=== PATIENT | female | born 1945 | race Caucasian/White ===

== ENCOUNTER 2020-08-09 10:08 | Outpatient (CLI) | payer MEDICARE, OTHER, SELFPAY ==
[2020-08-09 12:24] LABS: Calcium 10.2 mg/dL (8.5-10.5)
--- NOTE | 2020-08-09 18:29 | ONC CON_ITS ---
Dr. Chou New Patient Note Patient: Esha Colindres Unit #: [id number]: 1945 Dicatated By: Isaac Chou M.D.Date of Visit: Aug 09, 2020 Onc MED New Patient/Consult Referring Physician: Aura Gómez Chief Complaint: Hereditary hemorrhagic telangiectasia/osteoporosis. History of Present Illness: This is a 75 year-old woman with hereditary hemorrhagic telangiectasia. She also has osteoporosis, and she has been recommended to have an infusion of Reclast. She has known HHT. She has had recurrent epistaxis associated with it, but she has not had other bleeding manifestations. She also reports having had a stroke 23 years ago, and at that time she also was found to have deep vein thrombosis and pulmonary embolism, for which she has remained chronically anticoagulated with warfarin. She has additional history of osteoporosis with multiple vertebral compression fractures. The most recent fracture occurred 5 or 6 years ago. She has had prior Reclast infusions in 2014, 2016, and in April 2018. She had a follow-up visit at [facility] on 06/15/2020. Her bone mineral density at that time was noted to have decreased -2.2% in the lumbar spine and -2.7% in the femoral neck. These were considered to be significant, and she was recommended to have another infusion of Reclast administered locally. She is being seen here today for the Reclast infusion. She has been feeling pretty good generally. She says her energy is good, but she does have limited activity. ECOG score is 1. Her appetite has been okay. She does not have fever, night sweats, or hot flashes. She does have epistaxis associated with the HHT. She sometimes has cough associated with the more severe nosebleed. She does not complain of shortness of breath or chest pain. She has no GI or complaints, but she does report having a hernia in her right groin area, which she says needs to be fixed. She has some low back pain at times. She does not complain of headache or dizziness. She sometimes has tingling in her right hand. She has no other focal neurologic symptoms. Past Medical History: Her medical history includes hereditary hemorrhagic telangiectasia, history of deep vein thrombosis and pulmonary emboli, history of stroke, and osteoporosis. Past Surgical History: Her surgical/procedural history includes coil placement for pulmonary AVM and a vertebroplasty procedure. Medications: Calcium 2 Tablet (of 600 mg) Oral daily, Coumadin 1 (5 mg) Tablet Oral daily Allergies: Benzonatate and Red Meat. Social History: Ms. 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 She is a non-smoker. She does not drink alcohol. Family History: Father with lung cancer at age 83. Mother at age 80 with complications of HHT. Six of the patient's 10 siblings also had HHT. One brother also from complications with HHT. Another brother at age 54 with renal failure, having undergone renal transplant at age 33. One sister of breast cancer and another of stroke. Review Of Symptoms: Constitutional - She has pretty good energy, but her activity is limited. Her appetite has been okay. Her weight is stable. No fever, night sweats, or hot flashes. ECOG score is 1, Eyes - No change in vision, ENMT - No hearing loss or tinnitus. No sinus congestion/drainage. She has frequent epistaxis. No mouth sores. No sore throat or difficulty swallowing, Hematologic/Lymphatic - No abnormal bruising, but she has frequent epistaxis associated with HHT, Respiratory - No shortness of breath. She sometimes has cough with more severe nosbleeds. No pleuritic pain or hemoptysis, Cardiovascular - No angina pain. No palpitations, Gastrointestinal - No nausea or vomiting. No heartburn or acid reflux. No diarrhea or constipation. No blood in the stool or black stools, Genitourinary (F) - No dysuria or hematuria. No urinary frequency. No urgency or incontinence. She indicates that she has a hernia in the right groin area, Musculoskeletal - She has some low back pain, Integumentary - No skin rash or other skin changes, Neurologic - No headache or dizziness. She sometimes has tingling in her right hand. No other focal neurologic symptoms, Psychiatric - She has some anxiety. No depression. She has some difficulty sleeping. Vital Signs: Performed on Aug 09, 2020 10:48: 0, 25.12, 1.67 sq.m, 63 in, 98 %, 62 /min, 16 /min, 98.2 F (LOW), and 141.8 lbs (HIGH). Physical Examination: Constitutional - She appears to be in good general health, Eyes - Sclerae nonicteric. Conjunctivae clear, ENMT - There are a few telangectasia on the tongue. There are no other lesions noted in the oral cavity, Neck - No mass or thyromegaly, Hematologic/Lymphatic - No cervical, clavicular, or axillary adenopathy, Respiratory - Lungs are clear with good air movement bilaterally, Cardiovascular - Heart rhythm is regular. There is no murmur, gallop, or rub noted, Abdomen - Soft. Liver and spleen are not enlarged. There is no abdominal mass or ascites noted and there is no inguinal adenopathy, Back/Spine - There is a bony deformity in the lumbar spine area, Extremities - No edema. Dorsalis pedis pulses are palpable bilaterally, Integumentary - No suspicious skin lesions noted, Neurologic - No focal neurologic deficits noted. Lab/Imaging: Test performed on Aug 09, 2020 11:56 Calcium 10.2 mg/dL Creatinine 0.6 mg/dL Cr Clearance (Est) 82.26 mL/min Historic Problem List: 1. Hereditary hemorrhagic telangiectasia with recurrent epistaxis. 2. History of deep vein thrombosis and pulmonary embolism, on chronic anticoagulation with warfarin. 3. History of prior stroke. 4. Osteoporosis with multiple vertebral compression fractures. Problems Addressed with this Encounter and Plan: Osteoporosis with multiple vertebral compression fractures. Her bone mineral density study from May 2020 showed a -2.2% decrease in the lumbar spine and -2.7% decrease in the femoral neck compared to the March 2019 study. These were felt to be clinically significant. She has been recommended to have an infusion of Reclast. This will be administered today at a standard dosage of 5 mg by IV infusion. She will return here as needed. Signed By: Isaac Chou M.D. <<Signature on File>>
== END 2020-08-09 10:09 | disposition home or self-care (01) ==
PROVIDERS: PCP Internal Medicine; Visit Provider Internal Medicine Medical Oncology
DX: M80.08XA Age-related osteoporosis with current pathological fracture, vertebra(e), initial encounter for fracture (principal); I78.0 Hereditary hemorrhagic telangiectasia; Z86.73 Personal history of transient ischemic attack (TIA), and cerebral infarction without residual deficits; Z86.718 Personal history of other venous thrombosis and embolism; Z79.01 Long term (current) use of anticoagulants
CPT/HCPCS: 36415; 82310; 82565; 96365; 99204; J3489

== ENCOUNTER 2023-10-29 13:36 | Emergency (ER) | payer MEDICARE, OTHER, SELFPAY ==
[2023-10-29 13:44] VITALS: PULSE 70; RESP 16; TEMP 36.7; O2SAT 91
--- NOTE | 2023-10-29 13:47 | W.ED.GENADLT ---
HPI - General Adult General: Chief complaint: General Medical Stated complaint: lip bleeding Time Seen by Provider: 10/29/23 13:41 Source: patient Mode of arrival: ambulatory Limitations: no limitations History of Present Illness: 78-year-old female has a history of hereditary hemorrhagic telangiectasia mainly in the roof of her mouth has had bleeding from it in the past she is also on Coumadin she states she had some bleeding today and had last longer than typical. Bleeding has stopped at this time states she did have to have a transfusion last week. She denies any worsening improving factors or Associated symptoms: Deny chest pain, dyspnea, headache(s), nausea, rash or vomiting Review of Systems Const: Denies: fever(s), chills, body aches or change in appetite ENMT: Reports: oral sores; Denies: throat pain or dental pain Card: Denies: chest pain Resp: Denies: dyspnea GI: Denies: abdominal pain, nausea, vomiting or diarrhea Musc: Denies: neck pain or back pain Skin/Breast: Denies: rash Neuro: Denies: headache(s) Physical Exam Const: COMMON NORMALS: no acute distress, patient oriented x3 and healthy appearing HENMT: COMMON NORMALS: normocephalic and atraumatic HEAD & SCALP: normocephalic and atraumatic OTHER: Telangiectasia noted to roof of the mouth no active bleeding this time Eye: COMMON NORMALS: Equal, round and reactive pupils present and EOMs intact bilaterally PUPIL: Yes Equal, round and reactive pupils present Neck/C-Spine: COMMON NORMALS: full ROM and supple Chest: COMMONS NORMALS: normal inspection of the chest Resp: COMMON NORMALS: normal respiratory effort Cardio: COMMON NORMALS: regular rate, regular rhythm and No murmurs present (Cardio) RATE: regular rate RHYTHM: regular rhythm Extremity: COMMON NORMALS: normal to inspection and full ROM Neuro: COMMON NORMALS: patient oriented x3, moves all extremities and no focal motor deficits Psych: COMMON NORMALS: mental status grossly normal, Normal thought process present and cooperative THOUGHT PROCESS: Normal thought process present Skin: COMMON NORMALS: no rashes or lesions noted and no wounds GENERAL SKIN EXAM: no rashes or lesions noted Course Vital Signs: Vital signs: Vital Signs Temperature 98.1 F 10/29/23 13:44 Pulse Rate 69 10/29/23 15:00 Respiratory Rate 16 10/29/23 15:00 Blood Pressure 146/86 10/29/23 15:00 Pulse Oximetry 94 10/29/23 15:00 Oxygen Delivery Me thod Room Air 10/29/23 14:35 MDM - General Adult Medical Decision Making Patient presents here with bleeding to the roof of her mouth that is since resolved she stable for discharge follow-up with PCP return if worsening. Medical Records I reviewed the patient's medical records. Lab Data I reviewed the patient's lab results. 10/29/23 13:54 10/29/23 14:24 Laboratory Results WBC 9.45 10^3/uL (3.29-11.43) 10/29/23 13:54 RBC 4.28 10^6/uL (3.85-5.65) 10/29/23 13:54 Hgb 12.70 g/dL (11.27-16.99) 10/29/23 13:54 Hct 41.4 % (36-47) 10/29/23 13:54 MCV 96.7 fl (85-98) 10/29/23 13:54 MCH 29.7 pg (27-33) 10/29/23 13:54 MCHC 30.7 g/dL (30-55) 10/29/23 13:54 RDW 20.1 % (12.1-15.1) H 10/29/23 13:54 Plt Count 471 10^3/cmm (157-399) H 10/29/23 13:54 MPV 10.5 fL (7.4-10.4) H 10/29/23 13:54 Neut % (Auto) 75.9 % 10/29/23 13:54 Lymph % (Auto) 12.0 % 10/29/23 13:54 [place] % (Auto) 7.0 % 10/29/23 13:54 Eos % (Auto) 3.7 % 10/29/23 13:54 Baso % (Auto) 1.1 % 10/29/23 13:54 Neut # (Auto) 7.18 10^3/uL (1.8-7.7) 10/29/23 13:54 Lymph # (Auto) 1.1 10^3/uL (0.8-4.8) 10/29/23 13:54 [place] # (Auto) 0.7 10^3/uL (0.2-0.9) 10/29/23 13:54 Eos # (Auto) 0.4 10^3/uL (0.0-0.8) 10/29/23 13:54 Baso # (Auto) 0.1 10^3/uL (0.0-0.1) 10/29/23 13:54 Nucleated RBC % (auto) 0 % 10/29/23 13:54 Nucleated RBCs # 0.0 /100WBC 10/29/23 13:54 PT 21.80 SECONDS (12.1-14.9) H 10/29/23 14:24 INR 1.83 (0.8-1.2) H 10/29/23 14:24 Sodium 141 mmol/L (136-145) 10/29/23 14:24 Potassium 4.1 mmol/L (3.5-5.1) 10/29/23 14:24 Chloride 109 mmol/L (98-107) H 10/29/23 14:24 Carbon Dioxide 24 mmol/L (22-29) 10/29/23 14:24 Anion Gap 12.1 (5-19) 10/29/23 14:24 BUN 12 mg/dL (8-23) 10/29/23 14:24 Creatinine 0.4 mg/dL (0.5-0.9) L 10/29/23 14:24 GFR Calculation Not Reportable 10/29/23 14:24 Glucose 114 mg/dL (65-115) 10/29/23 14:24 Calculated Osmolality 293 mOsm/kg (285-295) 10/29/23 14:24 Calcium 8.8 mg/dL (8.5-10.5) 10/29/23 14:24 Total Bilirubin 1.8 mg/dL (0.15-1.2) H 10/29/23 14:24 AST 45 U/L (0-32) H 10/29/23 14:24 ALT 46 U/L (0-33) H 10/29/23 14:24 Alkaline Phosphatase 99 U/L (35-105) 10/29/23 14:24 Total Protein 6.1 g/dL (6.6-8.7) L 10/29/23 14:24 Albumin 3.6 g/dL (3.5-5.2) 10/29/23 14:24 Globulin 2.5 g/dL (1.3-4.6) 10/29/23 14:24 No radiology studies performed this visit Discharge Plan Discharge Patient Disposition: Home Clinical Impression: Bleeding Condition: Stable Prescriptions: No Action doxycycline hyclate 100 mg capsule 100 mg PO DAILY atorvastatin 20 mg tablet 20 mg PO DAILY Zyrtec 10 mg Tablet 10 mg PO BID Jantoven 4 mg tablet 4 mg PO DAILY Calcium 600 600 mg calcium (1,500 mg) Tablet 600 mg PO BID Pepcid 20 mg Tablet 20 mg PO BID losartan 25 mg tablet 25 mg PO DAILY epinephrine 0.3 mg/0.3 mL auto-injector See Rx Instructions .ROUTE .COMPLEX Rx Instructions: as directed Discharge Orders: Discharge ED (Routine); Ordered 10/29/23 Ordered By: Padmini Villatoro Discharge Diet: Advance as tolerated Discharge Activity: Resume usual activity Patient Instructions: Bleeding Disorders (ED) Coding Level of Care Code ED Controls Design Engineer for Miguel [facility]
[2023-10-29 13:58] VITALS: BP 180/82
[2023-10-29 13:59] LABS: Basophils # 0.1 10^3/uL (0.0-0.1); Basophils % 1.1 %; Eosinophils # 0.4 10^3/uL (0.0-0.8); Eosinophils % 3.7 %; Hematocrit 41.4 % (36-47); Lymphocytes # 1.1 10^3/uL (0.8-4.8); Mean Corpuscular HGB Conc 30.7 g/dL (30-55); Mean Corpuscular Hemoglobin 29.7 pg (27-33); Mean Corpuscular Volume 96.7 fl (85-98); Mean Platelet Volume 10.5 fL (7.4-10.4); Monocytes # 0.7 10^3/uL (0.2-0.9); Neutrophils # 7.18 10^3/uL (1.8-7.7); Neutrophils % 75.9 %; Nucleated Red Blood Cells % 0 %; Platelet Count 471 10^3/cmm (157-399); Red Blood Count 4.28 10^6/uL (3.85-5.65); Red Cell Distribution Width 20.1 % (12.1-15.1); White Blood Count 9.45 10^3/uL (3.29-11.43)
[2023-10-29 14:35] VITALS: BP 140/82; PULSE 67; RESP 16; O2SAT 91
[2023-10-29 14:48] LABS: Alanine Aminotransferase 46 U/L (0-33); Albumin Level 3.6 g/dL (3.5-5.2); Alkaline Phosphatase 99 U/L (35-105); Aspartate Amino Transferase 45 U/L (0-32); Blood Urea Nitrogen 12 mg/dL (8-23); Calcium 8.8 mg/dL (8.5-10.5); Carbon Dioxide 24 mmol/L (22-29); Chloride 109 mmol/L (98-107); Globulin 2.5 g/dL (1.3-4.6); Glucose 114 mg/dL (65-115); Osmolality Calculated 293 mOsm/kg (285-295); Sodium 141 mmol/L (136-145); Total Bilirubin 1.8 mg/dL (0.15-1.2); Total Protein 6.1 g/dL (6.6-8.7)
[2023-10-29 14:49] LABS: Anion Gap 12.1 (5-19); Potassium 4.1 mmol/L (3.5-5.1)
[2023-10-29 15:00] VITALS: BP 146/86; PULSE 69; RESP 16; O2SAT 94
[2023-10-29 15:01] LABS: INR 1.83 (0.8-1.2)
[2023-10-29] MEDS: tranexamic acid 1,000 MG/100 ML PREMIX 600 MG IV (15:12)
== END 2023-10-29 16:17 | disposition home or self-care (01) ==
PROVIDERS: Emergency Provider Emergency Medicine
DX: I78.0 Hereditary hemorrhagic telangiectasia (principal)
CPT/HCPCS: 36415; 80053; 85025; 85610; 96374; 99284